=== PATIENT | male | born 1990 | race Two or more races ===

== ENCOUNTER 2017-03-16 16:42 | Emergency (ER) | payer OTHER ==
[~2017-03-16] VITALS: Ht 175.3 cm; Wt 240.0 kg
[~2017-03-16 16:42] MED LIST: CATAPRES0.1 MG PO; CETIRIZINE HCL10 M2 PO; CIPRO HC OTIC S10 ML LEFT EAR; CLARITIN10 MG PO; CLONIDINE HCL0.2 MG PO; DIVALPROEX SOD125 M1 PO; FLEXERIL10 MG PO; HYCODAN SYRUP480 ML PO; LISINOP/HCTZ TAB 20- PO; NAPROSYN500 MG PO; OMEPRAZOLE40 M1 PO; RANITIDINE HCL300 MG PO; STRATTERA40 MG PO; VALACYCLOVIR1000 MG PO; ZANTAC150 MG PO; ZESTORETIC 20-1 EAC1 PO
[2017-03-16 19:23] VITALS: BP 135/80
== END 2017-03-16 19:29 | disposition home or self-care (01) ==
LOC: EME 16:42
DX: F20.9 Schizophrenia, unspecified (principal); F31.9 Bipolar disorder, unspecified; I10 Essential (primary) hypertension
CPT/HCPCS: 90837; 99281; 99285

== ENCOUNTER 2017-08-27 12:41 | Emergency (ER) | payer OTHER ==
[~2017-08-27] VITALS: Ht 167.6 cm; Wt 119.4 kg
[2017-08-27 13:20] LABS: ADD MIUA? YES; BILIRUBIN NEGATIVE; BLOOD NEGATIVE; COLOR YELLOW ((YELLOW)); GLUCOSE (STRIP) NEGATIVE; KETONES NEGATIVE; LEUKOCYTES TRACE; NITRITE NEGATIVE; PROTEIN (STRIP) NEGATIVE; SPECIFIC GRAVITY 1.016 (1.000-1.030); UROBILINOGEN 0.2 MG/DL (0.2-1.0)
[2017-08-27 13:23] LABS: BACTERIA NONE SEEN /HPF; EPITHELIAL CELLS RARE /HPF; MUCUS TRACE /LPF; RED BLOOD CELLS 0-5 /HPF (0-5); UCUL ADDED? NO; WHITE BLOOD CELLS 0-5 /HPF (0-5)
[2017-08-27 13:25] LABS: HEMATOCRIT 42.4 % (38.0-50.0); MCH 27.5 PG (29.0-34.0); MCHC 33.3 G/DL (30.0-36.0); MCV 82.7 FL (86-99); MEAN PLAT.VOLUME 8.9 uM^3 (9.0-12.4); PLATELET COUNT 308 K/uL (156-360); RBC DIS.WIDTH-CV 15.1 % (11.8-14.6); RBC DIS.WIDTH-SD 46.1 % (39-53); RED BLOOD COUNT 5.13 M/uL (4.00-5.50)
[2017-08-27 13:35] LABS: CHLORIDE 102 mEq/L (99-109); POTASSIUM 3.5 mEq/L (3.7-5.4); SODIUM 140 mEq/L (136-147)
[2017-08-27 13:37] LABS: GLUCOSE 113 mg/dL (70-99)
[2017-08-27 13:38] LABS: ANION GAP 10 MEQ/L (2-14)
[2017-08-27 13:39] LABS: TOTAL BILIRUBIN 0.4 mg/dL (0.0-1.0)
[2017-08-27 13:40] LABS: ALKALINE PHOSPHATASE 104 IU/L (3-129)
[2017-08-27 13:41] LABS: GFR ESTIMATE (CALCULATED) > 59 mL/min/ (58.99-99999)
[2017-08-27 13:42] LABS: UREA NITROGEN (BUN) 10 mg/dL (9-23)
[2017-08-27 13:44] LABS: LIPASE 78 U/L (1.0-51.0)
[2017-08-27] MEDS ORDERED: ZOFRAN ODT4 MG PO (13:58)
[2017-08-27] MEDS ORDERED: PROMETHAZINE HC25 M1 PO (14:06)
[2017-08-27 14:34] VITALS: BP 130/80
== END 2017-08-27 14:35 | disposition home or self-care (01) ==
LOC: EME 12:41
DX: B34.9 Viral infection, unspecified (principal); R11.2 Nausea with vomiting, unspecified; I10 Essential (primary) hypertension; F90.9 Attention-deficit hyperactivity disorder, unspecified type; F32.9 Major depressive disorder, single episode, unspecified
CPT/HCPCS: 80053; 81003; 83690; 85027